=== PATIENT | female | born 1935 | race Two or more races ===

== ENCOUNTER 2023-02-08 17:03 | Emergency (ER) | payer OTHER ==
[~2023-02-08] VITALS: Ht 152.4 cm; Wt 68.0 kg
[2023-02-08] MEDS ORDERED: SYNTHROID50 MCG PO (18:25)
[2023-02-08] MEDS ORDERED: DULOXETINE HCL20 MG PO (18:25)
[2023-02-08] MEDS ORDERED: HYDRODIURIL12.5 MG PO (18:25)
[2023-02-08] MEDS ORDERED: CARVEDILOL25 M1 PO (18:26)
[2023-02-08] MEDS ORDERED: OLMESARTAN MEDO40 MG PO (18:26)
== END 2023-02-08 23:18 | disposition home or self-care (01) ==
LOC: ER 17:03
DX: S79.811A Other specified injuries of right hip, initial encounter (principal); W18.39XA Other fall on same level, initial encounter; Y93.89 Activity, other specified; Y92.89 Other specified places as the place of occurrence of the external cause; S89.81XA Other specified injuries of right lower leg, initial encounter; Z88.2 Allergy status to sulfonamides; Z88.0 Allergy status to penicillin; Z88.6 Allergy status to analgesic agent; S00.83XA Contusion of other part of head, initial encounter